=== PATIENT | female | born 1980 | race Caucasian/White ===

== ENCOUNTER 2016-03-15 05:29 | Emergency (ER) | payer SELFPAY ==
[~2016-03-15] VITALS: Ht 152.4 cm; Wt 90.7 kg
[2016-03-15 05:35] VITALS: BP 142/76
== END 2016-03-15 06:04 | disposition home or self-care (01) ==
LOC: ER 05:29
DX: J40 Bronchitis, not specified as acute or chronic (principal); F17.200 Nicotine dependence, unspecified, uncomplicated
CPT/HCPCS: 99283; A4606; Z7610

== ENCOUNTER 2017-08-13 12:02 | Emergency (ER) | payer MEDICAID ==
[~2017-08-13] VITALS: Ht 162.6 cm; Wt 85.7 kg
[2017-08-13 12:08] VITALS: BP 134/55
== END 2017-08-13 12:39 | disposition home or self-care (01) ==
LOC: ER 12:07
DX: Z11.3 Encounter for screening for infections with a predominantly sexual mode of transmission (principal); F17.200 Nicotine dependence, unspecified, uncomplicated
CPT/HCPCS: 84703-TC; 87491; 87591; A4606; Z7610

== ENCOUNTER 2017-10-23 09:15 | Emergency (ER) | payer MEDICAID ==
[~2017-10-23] VITALS: Ht 167.6 cm; Wt 77.1 kg
[2017-10-23 09:20] VITALS: BP 116/79
[2017-10-23] MEDS ORDERED: IBUPROFEN 600 MG TABLET PO ONE ×2 (09:28→09:30)
--- NOTE | 2017-10-23 09:31 | NUR ---
PT LEFT ER. AFTER TAKING MOTRIN. LEFT W/OUT ACI AND PRESCRIPTION.
== END 2017-10-23 09:36 | disposition home or self-care (01) ==
LOC: ER 09:16
DX: S93.691A Other sprain of right foot, initial encounter (principal); F10.10 Alcohol abuse, uncomplicated; F17.200 Nicotine dependence, unspecified, uncomplicated; Y90.9 Presence of alcohol in blood, level not specified; X58.XXXA Exposure to other specified factors, initial encounter; Y93.89 Activity, other specified; Y92.89 Other specified places as the place of occurrence of the external cause; Y99.8 Other external cause status
CPT/HCPCS: 99282; A4606; Z7610

== ENCOUNTER 2018-04-01 18:03 | Emergency (ER) | payer SELFPAY ==
[~2018-04-01] VITALS: Ht 162.6 cm; Wt 90.7 kg
[2018-04-01 18:23] VITALS: BP 131/54
--- NOTE | 2018-04-01 19:00 | NUR ---
PT BIB SELF Faintness "Feel like fainting" AND PT AMBULATED TO BED WITH A STEADY GAIT. PT PLACED ON MONITOR WITH VS WNL. PT SITTING IN BED IN A COMFORTABLE POSITION. AWAITING MD ANDRADE.
[2018-04-01 19:56] LABS: BASOPHILS # (AUTO) 0.1 /CMM (0.0-0.2); BASOPHILS % (AUTO) 0.4 % (0.0-2.0); EOSINOPHILS % (AUTO) 0.7 % (0.0-6.0); HEMATOCRIT 38 % (33-45); HEMOGLOBIN 12.1 g/dL (11.5-14.8); LYMPHOCYTES # (AUTO) 1.5 /CMM (0.8-4.8); LYMPHOCYTES % (AUTO) 12.5 % (20.0-44.0); MEAN CORPUSCULAR HGB CONC 32 g/dl (31.0-36.0); MEAN CORPUSCULAR VOLUME 85 fL (82-100); MONOCYTES # (AUTO) 0.5 /CMM (0.1-1.30); MONOCYTES % (AUTO) 4.6 % (2.0-12.0); NEUTROPHILS # (AUTO) 9.6 /CMM (1.8-8.9); NEUTROPHILS % (AUTO) 81.8 % (43.0-81.0); PLATELET COUNT (AUTO) 245 /CMM (150-450); RED BLOOD CELL COUNT(AUTO) 4.47 MIL/uL (4.0-5.2); WHITE BLOOD COUNT (AUTO) 11.7 K/uL (4.3-11.0)
[2018-04-01] MEDS ORDERED: ONDANSETRON HCL/PF 4 MG/2 ML VIAL IVP ONE (20:00)
[2018-04-01] MEDS ORDERED: IV NS 0.9% 1,000 ML BAG IV ONE (20:00)
[2018-04-01] MEDS ORDERED: ONDANSETRON HCL/PF 4 MG/2 ML VIAL ONE (20:03)
== END 2018-04-01 21:05 | disposition home or self-care (01) ==
LOC: ER 18:06
DX: R53.1 Weakness (principal); R55 Syncope and collapse; R11.0 Nausea; F17.200 Nicotine dependence, unspecified, uncomplicated
CPT/HCPCS: 36415; 82962; 85025; 96361; 96374; 99283; A4606; J2405; J7030; Z7610

== ENCOUNTER 2020-09-08 02:55 | Emergency (ER) | payer MEDICAID, OTHER ==
[~2020-09-08] VITALS: Ht 157.5 cm; Wt 81.6 kg
--- NOTE | 2020-09-08 03:00 | NUR ---
PT MAU FROM THE STREETS C/O GENERALIZED WEAKNESS, PALPITATIONS, SOB, N/V X 1 DAY. PT SPEAKING IN FULL SENTENCES. PT STATES SHE FELT WEAK WHILE GIVING PLASMA SO THEY HAD TO STOP IT. PT AAOX4, RR EVEN AND UNLABORED. PT CONNECTED TO THE MANAGER FLOAT AND POX. CALL LIGHT WITHIN REACH. WILL CONTINUE TO MONITOR PT
[2020-09-08] MEDS ORDERED: ONDANSETRON HCL/PF 4 MG/2 ML VIAL ONE (03:21)
[2020-09-08] MEDS ORDERED: HYDROMORPHONE 1 MG/1 ML DISP.SYRIN ONE (03:21)
[2020-09-08] MEDS ORDERED: ASPIRIN 81 MG TAB.CHEW ONE (03:22)
[2020-09-08 03:28] LABS: BASOPHILS # (AUTO) 0.1 K/uL (0.0-0.2); BASOPHILS % (AUTO) 0.8 % (0.0-2.0); EOSINOPHILS % (AUTO) 0.8 % (0.0-6.0); HEMATOCRIT 46 % (33-45); HEMOGLOBIN 15.2 g/dL (11.5-14.8); LYMPHOCYTES % (AUTO) 18.6 % (20.0-44.0); MEAN CORPUSCULAR HGB CONC 33 g/dl (31.0-36.0); MEAN CORPUSCULAR VOLUME 93 fL (82-100); MONOCYTES # (AUTO) 1.2 K/uL (0.1-1.30); MONOCYTES % (AUTO) 7.4 % (2.0-12.0); NEUTROPHILS # (AUTO) 11.5 K/uL (1.8-8.9); NEUTROPHILS % (AUTO) 72.4 % (43.0-81.0); PLATELET COUNT (AUTO) 245 K/uL (150-450); RED BLOOD CELL COUNT(AUTO) 4.96 MIL/uL (4.0-5.2); WHITE BLOOD COUNT (AUTO) 15.9 K/uL (4.3-11.0)
[2020-09-08] MEDS ORDERED: ONDANSETRON HCL/PF - ER 4 MG/2 ML VIAL IV ONE (03:30)
[2020-09-08] MEDS ORDERED: ASPIRIN 81 MG TAB.CHEW PO ONE (03:30)
[2020-09-08] MEDS ORDERED: HYDROMORPHONE 1 MG/1 ML DISP.SYRIN IV ONE (03:30)
[2020-09-08] MEDS ORDERED: IV NS 0.9% 1,000 ML BAG IV ONE (03:30)
[2020-09-08 03:38] LABS: CARBON DIOXIDE 26 mmol/L (21-32); CHLORIDE 100 mmol/L (98-107); CREATININE 1.4 mg/dL (0.6-1.3); GLUCOSE 121 mg/dL (74-106); POTASSIUM 2.9 mmol/L (3.5-5.1); SODIUM SERUM 138 mmol/L (136-145); UREA NITROGEN, BLOOD 18 mg/dL (7-18)
[2020-09-08 03:44] LABS: ALANINE AMINOTRANSFERASE 37 U/L (12-78); ALBUMIN 3.3 g/dL (3.4-5.0); ALKALINE PHOSPHATASE 63 U/L (46-116); ASPARTATE AMINOTRANSFERASE 28 U/L (15-37); BILIRUBIN,DIRECT 0.1 mg/dL (0.0-0.2); BILIRUBIN,TOTAL 0.3 mg/dL (0.2-1.0); TOTAL PROTEIN, SERUM 7.1 g/dL (6.4-8.2)
[2020-09-08 03:49] LABS: CALCIUM, SERUM 8.9 mg/dL (8.5-10.1)
[2020-09-08] MEDS ORDERED: POTASSIUM CHLORIDE 20 MEQ TAB.PRT.SR PO ONE ×2 (06:30→07:06)
[2020-09-08] MEDS ORDERED: POTASSIUM CHLORIDE 10 MEQ TABLET.SA ONE (07:07)
[2020-09-08 08:31] VITALS: BP 135/71
--- NOTE | 2020-09-08 08:31 | NUR ---
Patient discharged to home in stable condition. Written and verbal after care instructions given. Patient verbalizes understanding of instruction.IV removed. Catheter intact and site benign. Pressure and 4x4 applied to site. No bleeding noted.
== END 2020-09-08 08:31 | disposition home or self-care (01) ==
LOC: ER 02:57
DX: R07.9 Chest pain, unspecified (principal); R06.00 Dyspnea, unspecified; R00.2 Palpitations; R53.1 Weakness; R42 Dizziness and giddiness; Z20.822 Contact with and (suspected) exposure to COVID-19; F17.210 Nicotine dependence, cigarettes, uncomplicated; R94.31 Abnormal electrocardiogram [ECG] [EKG]; E87.6 Hypokalemia
CPT/HCPCS: 36415; 71045; 80048; 80076; 84484 ×2; 84702; 85025; 85378; 87426; 93005; 96361; 96374; 96375; 99285; 99406; C9803; J1170; J2405 ×2; J7030